=== PATIENT | female | born 1965 | race African-American/Black ===

== ENCOUNTER 2016-03-21 14:24 | Emergency (ER) | payer BC ==
[~2016-03-21] VITALS: Ht 160 cm; Wt 70.3 kg
[~2016-03-21 14:24] MED LIST: AMITRIPTYLINE H10 M3 PO; LEXAPRO20 MG PO; MULTIVITAMINS1 EAC7 PO; VITAMIN B-12500 MCG PO; VITAMIN D400 UNIT PO; VITAMINC500 PO; ZOFRAN ODT4 MG PO
[2016-03-21 16:25] VITALS: BP 172/106
[2016-04-13] MEDS ORDERED: IBUPROFEN 800800 M1 PO (18:57)
[2016-04-13] MEDS ORDERED: REMERON15 MG PO (18:57)
[2016-04-13] MEDS ORDERED: XANAX 0.25 MG0.25 MG PO (18:58)
[2016-04-13] MEDS ORDERED: WELLBUTRIN 75 M75 M1 PO (18:59)
[2016-04-15] MEDS ORDERED: AMLODIPINE BESYL5 M1 PO (20:01)
== END 2016-03-21 16:26 | disposition home or self-care (01) ==
LOC: ER 14:24
DX: S61.411A Laceration without foreign body of right hand, initial encounter (principal); Z88.1 Allergy status to other antibiotic agents; W26.0XXA Contact with knife, initial encounter; Y93.89 Activity, other specified; Y92.9 Unspecified place or not applicable; Y99.9 Unspecified external cause status